=== PATIENT | male | born 1930 | race Caucasian/White ===

== ENCOUNTER 2016-11-02 09:32 | Emergency (ER) | payer MEDICARE, OTHER ==
--- NOTE | 2016-11-02 09:49 | ERPHSYRPT ---
- History of Present Illness Time Seen by Provider: 11/02/16 09:36 Historian: patient Exam Limitations: no limitations Physician History: Pt. sent from cardiac rehab for CP/SOB/exercise intolerance and tachycardia. Pt. with substernal CP intermittently for past 3 days. Pt. given nitros with minimal relief. Pt. with increased SOB and weakness over the weekend. Pt. described pain as tightness, palpitations, pre-syncope and weakness, but no diaphoresis, N/V. Heart rate in 160's. Had CABG X 3 in 2006 then had stents placed due to bypass being plugged. Denies any fever, chills, cough or recent illnesses. Timing/Duration: day(s) (3) Activities at Onset: activity Quality: pressure, tightness Location: substernal Chest Pain Radiation: no radiation Severity of Pain-Max: moderate Severity of Pain-Current: none Modifying Factors: Improves With: exertion (worsens), rest (improves) Associated Symptoms: palpitations, shortness of breath, fatigue, syncope, dizziness, No nausea, No vomiting, No cough Prior Chest Pain/Cardiac Workup: cardiac cath, heart attack (X 2 previously) Nitro Today/Relief: no nitro taken today Aspirin Treatment Today: 81 mg x 1 Allergies/Adverse Reactions: No Known Drug Allergies Allergy (Unverified 11/02/16 09:49) Home Medications: Albuterol Sulfate [Ventolin Hfa] 2 puff DAILY 11/02/16 [History] Amlodipine Besylate 5 mg [Norvasc 5 mg] 5 mg DAILY 11/02/16 [History] Aspirin [[place] Aspirin] 81 mg DAILY 11/02/16 [History] Buspirone HCl 7.5 mg DAILY 11/02/16 [History] Clopidogrel Bisulfate 75 mg [PLAVIX 75 MG Tablet] 75 mg DAILY 11/02/16 [ History] Esomeprazole Magnesium [Nexium] 20 mg DAILY 11/02/16 [History] Fluticasone Propionate [Flonase NASAL] 1 spray DAILY 11/02/16 [History] Hydrochlorothiazide [Microzide] 12.5 mg DAILY 11/02/16 [History] Isosorbide Mononitrate [Isosorbide Mononitrate ER] 30 mg DAILY 11/02/16 [History ] Metformin HCl Xr 500 mg [Glucophage XR 500 MG] 1,000 mg DAILY 11/02/16 [ History] Metoprolol Tartrate [Lopressor] 50 mg DAILY 11/02/16 [History] Simvastatin 40 mg [Zocor 40 mg] 40 mg DAILY 11/02/16 [History] Umeclidinium [place] [Incruse Ellipta] 62.5 mg DAILY 11/02/16 [History] - Review of Systems Constitutional: No Fever, No Chills Eyes: No Symptoms Ears, Nose, & Throat: No Symptoms Respiratory: Dyspnea, Dyspnea on Exertion (RYAN), No Cough, No Stridor, No Wheezing Cardiac: Chest Pain, Palpitations, Orthopnea, No Edema, No Syncope Abdominal/Gastrointestinal: No Abdominal Pain, No Nausea, No Vomiting, No Diarrhea Genitourinary Symptoms: No Dysuria Musculoskeletal: No Back Pain, No Neck Pain Skin: No Rash Neurological: Dizziness, No Focal Weakness, No Sensory Changes Psychological: No Symptoms Endocrine: No Symptoms All Other Systems: Reviewed and Negative - Past Medical History Pertinent Past Medical History: Yes Cardiac History: Coronary Artery Disease, High Cholesterol, Hypertension Respiratory History: COPD Endocrine Medical History: Diabetes Type II Other Medical History: Sleep Apnea - Past Surgical History Cardiac: CABG, Cardiac Stent - Social History Smoking Status: Former smoker Exposure to second hand smoke: No Alcohol Use: None Drug Use: none Patient Lives Alone: No Significant Family History: no pertinent family hx - Nursing Vital Signs Nursing Vital Signs: Initial Vital Signs Temperature 97.4 F Temperature Source Oral Pulse Rate 70 Respiratory Rate 18 Blood Pressure [] 142/67 Pain Intensity 0 - Physical Exam General Appearance: no apparent distress, alert Eye Exam: PERRL/EOMI, eyes nml inspection Ears, Nose, Throat Exam: normal ENT inspection, moist mucous membranes Neck Exam: normal inspection, non-tender, supple, full range of motion Respiratory Exam: normal breath sounds, lungs clear, No respiratory distress Cardiovascular Exam: regular rate/rhythm, normal heart sounds Gastrointestinal/Abdomen Exam: soft, No tenderness, No mass Back Exam: normal inspection, No CVA tenderness, No vertebral tenderness Extremity Exam: normal inspection, normal range of motion Neurologic Exam: alert, oriented x 3, cooperative, normal mood/affect, sensation nml, No motor deficits Skin Exam: normal color, warm, dry - Course Nursing assessment & vital signs reviewed: Yes EKG Interpreted by Me: RATE (75), Sinus Rhythm, NORMAL AXIS, Right Bundle Branch Block, Non-specific ST Changes, Other (compared to old EKG on 12/06, similar changes noted) - Radiology Exams Chest X-ray Interpretation: Teleradiologist Report, Infiltrates (L base) Ordered Tests: Active Orders 24 hr Category Date Time Status Caterer'S Aide STAT Care 11/02/16 09:39 Active EKG-ER Only STAT Care 11/02/16 09:39 Active IV Insertion STAT Care 11/02/16 09:39 Active Pulse Oximetry (ED) STAT Care 11/02/16 09:39 Active CHEST 1 VIEW (PORTABLE) Stat Exams 11/02/16 09:39 Completed BMP Stat Lab 11/02/16 09:49 Completed CBC W DIFF Stat Lab 11/02/16 09:49 Completed CK-Creatinine Phosphokinase Stat Lab 11/02/16 09:49 Completed Manual Differential NC Stat Lab 11/02/16 09:49 Completed TROPONIN Q3H Lab 11/02/16 09:49 Completed TROPONIN Q3H Lab 11/02/16 12:45 Ordered TROPONIN Q3H Lab 11/02/16 15:45 Ordered TROPONIN Q3H Lab 11/02/16 18:45 Ordered TROPONIN Q3H Lab 11/02/16 21:45 Ordered Medication Summary Discontinued Medications Generic Name Dose Route Start Last Admin Trade Name Freq PRN Reason Stop Dose Admin Aspirin 243 mg 11/02/16 10:32 11/02/16 10:35 Ecotrin 81 Mg PO 11/02/16 10:33 Not Given 1XONLY ONE Aspirin 243 mg 11/02/16 10:35 11/02/16 10:36 Baby Aspirin 81 Mg Chew PO 11/02/16 10:36 243 mg STAT ONE Administration Lab/Rad Data: Laboratory Result Diagrams 11/02/16 09:49 11/02/16 09:49 Laboratory Results 11/02/16 11/02/16 11/02/16 Range/Units 09:49 09:49 09:49 WBC 10.7 H (4.0-10.5) K/mm3 RBC 5.13 (4.1-5.6) M/mm3 Hgb 15.6 (12.5-18.0) gm/dl Hct 47.5 (42-50) % MCV 92.6 (78-100) fl MCH 30.4 (26-32) pg MCHC 32.8 (32-36) g/dl RDW 15.4 H (11.5-14.0) % Plt Count 271 (150-450) K/mm3 MPV 12.7 H (6-9.5) fl Segmented Neutrophils 64 (36.-66.) % Band Neutrophils 1 (0.0-2.0) % Lymphocytes (Manual) 29 (24-44) % Monocytes (Manual) 5 (0.0-12.0) % Eosinophils (Manual) 1 (0.00-3.0) % Differential Comment ABNORMAL Toxic Granulation 1+ Platelet Estimate NORMAL (NORMAL) Anisocytosis 1+ Sodium 140 (136-145) mEq/L Potassium 4.6 (3.5-5.1) mEq/L Chloride 105 (98-107) mEq/L Carbon Dioxide 22.7 (21-32) mEq/L Anion Gap 16.4 H (5-15) MEQ/L BUN 16 (9-20) mg/dL Creatinine 1.37 H (0.55-1.30) mg/dl Estimated GFR 53 ML/MIN Glucose 137 H (70-110) MG/DL Calcium 10.5 H (8.5-10.1) mg/dL Creatine Kinase 37 L (39-308) U/L Troponin I < 0.017 (0.000-0.056) ng/ml - Progress Progress: improved Air Movement: good Progress Note: Pt. resting comfortably, NAD, no CP or SOB at this time. Attempting to call manager care, Dr. Dela Cruz, currently in stress test. 11/02/16 12:[address] Dela Cruz for over 1 hr. without response. Called office to talk to grants officer, who gave Dr. Sorensen's pager, manager care reference and instruction librarian. Dr. Sorensen paged at 12:11P. 11/02/16 12:02 11/02/16 12:25 Dr. Sorensen, manager care reference and instruction librarian, notified and agreed to accepting pt. Blood Culture(s) Obtained: No Antibiotics given: No Discussed with DrHarjeet: Other (DR. SORENSEN NOTIFIED AND AGREED TO ACCEPTING PT. FOR FURTHER CARE) Counseled pt/family regarding: lab results, diagnosis, rad results - Departure Time of Disposition: 12:24 Departure Disposition: Transfer ([facility]) Clinical Impression: Chest pain Condition: Stable Critical Care Time: No Referrals: TAO DELA CRUZ [Primary Care Provider] -
[2016-11-02 09:55] LABS: Mean Cell Volume 92.6 fl (78-100); Mean Corpuscular Hemoglobin 30.4 pg (26-32); Mean Platelet Volume 12.7 fl (6-9.5); Platelet Count 271 K/mm3 (150-450); Red Blood Count 5.13 M/mm3 (4.1-5.6); Red Cell Distribution Width 15.4 % (11.5-14.0); White Blood Count 10.7 K/mm3 (4.0-10.5)
[2016-11-02 10:29] LABS: ANION GAP 16.4 MEQ/L (5-15); Carbon Dioxide 22.7 mEq/L (21-32); Potassium 4.6 mEq/L (3.5-5.1)
[2016-11-02] MEDS ORDERED: ECOTRIN 81 MG PO ONE (10:32)
[2016-11-02] MEDS ORDERED: BABY ASPIRIN 81 MG CHEW PO ONE (10:35)
--- NOTE | 2016-11-02 10:37 | XRAY ---
Indication: Chest pain. Comparison: None Portable chest demonstrates mild left base infiltrate versus atelectasis and a few bilateral scattered calcified granulomas. No consolidation or large effusion. Heart is not enlarged for AP portable technique with previous CABG surgery. Bony thorax intact with mild osteopenia and degenerative changes. Impression: Left base infiltrate/atelectasis. Correlate clinically.
[2016-11-02 10:44] LABS: ANISOCYTOSIS 1+; BAND 1 % (0.0-2.0); Eosinophil 1 % (0.00-3.0); Platelet Estimate NORMAL (NORMAL); Total Cells Counted 100; Toxic Granulation 1+
[2016-11-02 13:26] VITALS: BP 152/90; PULSE 73; O2SAT 97
== END 2016-11-02 13:50 | disposition short-term general hospital (02) ==
LOC: ED 09:32
DX: R07.89 Other chest pain (principal); R00.0 Tachycardia, unspecified; R06.02 Shortness of breath; R00.2 Palpitations; R42 Dizziness and giddiness; Z79.899 Other long term (current) drug therapy; I25.10 Atherosclerotic heart disease of native coronary artery without angina pectoris; E78.00 Pure hypercholesterolemia, unspecified; I10 Essential (primary) hypertension; J44.9 Chronic obstructive pulmonary disease, unspecified; E11.9 Type 2 diabetes mellitus without complications; Z98.61 Coronary angioplasty status; Z95.1 Presence of aortocoronary bypass graft
CPT/HCPCS: 36000; 36415; 71010; 80048; 82550; 84484; 85025; 93005; 93041; 99285; A9270-GY

== ENCOUNTER 2016-11-09 09:24 | Emergency (ER) | payer MEDICARE, OTHER ==
[2016-11-09] MEDS ORDERED: Sodium Chloride 0.9% 1000 ML 1,000 ML ONE (10:11)
[2016-11-09] MEDS ORDERED: Sodium Chloride 0.9% 1000 ML 1,000 ML IV SCH (10:15)
--- NOTE | 2016-11-09 10:16 | ERPHSYRPT ---
- History of Present Illness Time Seen by Provider: 11/09/16 10:00 Source: patient Exam Limitations: clinical condition Patient Subjective Stated Complaint: shortness of breath, dizzyness rapid heart rate Triage Nursing Assessment: patient was in cardiac rehab on stationary bike became dizzy and short of breeath when he got up off the bike, heart rate was tachycardic, brought him down to ED states his chest was tight. lung sounds clear diminished, pulses equal bilateral radius Physician History: PATIENT WITH A HISTORY OF EXTENSIVE CORONARY ARTERY DISEASE, MYOCARDIAL INFARCTION X 2, CARDIAC STENTS X 6 AND PREVIOUS CORONARY ARTERY BYPASS X 3 VESSELS IN 2006, DEVELOPED DYSPNEA WITH CHEST PRESSURE DISCOMFORT ASSOCIATED WITH DIZZINESS AT THE END OF EXERCISION IN CARDIAC REHAB. PATIENT STATES HIS PRESSURE DISCOMFORT PAIN SCALE 6/10, RESOLVED AFTER 10 MINUTES. PATIENT DENIES DIAPHORESIS. PATIENT HAD AN EPISODE OF CHEST PAIN WITH DYSPNEA 1 WEEK DURING CARDIAC REHAB AND WAS TREANSFERRED TO HIS GANG [facility] IN [facility] FOR A STRESS TEST. Timing/Duration: today Activities at Onset: activity Quality: pressure Location: substernal Chest Pain Radiation: no radiation Severity of Pain-Max: moderate Severity of Pain-Current: none Modifying Factors: Improves With: exertion Nitro Today/Relief: 0.4 mg x 1 Aspirin Treatment Today: 81 mg x 1 Associated Symptoms: shortness of breath, chest pain, other (DIZZINESS) Prior Chest Pain/Cardiac Workup: stress test (EVALUATION WITH STRESS TEST 1 WEEK AGO), recently seen/treated Allergies/Adverse Reactions: No Known Drug Allergies Allergy (Verified 11/09/16 10:12) Home Medications: Albuterol Sulfate [Ventolin Hfa] 2 puff DAILY 11/02/16 [History] Amlodipine Besylate 5 mg [Norvasc 5 mg] 5 mg DAILY 11/02/16 [History] Aspirin [[place] Aspirin] 81 mg DAILY 11/02/16 [History] Buspirone HCl 10 mg BID 11/02/16 [History] Esomeprazole Magnesium [Nexium] 20 mg DAILY 11/02/16 [History] Hydrochlorothiazide [Microzide] 12.5 mg DAILY 11/02/16 [History] Isosorbide Mononitrate [Isosorbide Mononitrate ER] 30 mg DAILY 11/02/16 [History ] Metformin HCl Xr 500 mg [Glucophage XR 500 MG] 1,000 mg DAILY 11/02/16 [ History] Simvastatin 40 mg [Zocor 40 mg] 40 mg DAILY 11/02/16 [History] Umeclidinium [place] [Incruse Ellipta] 62.5 mg DAILY 11/02/16 [History] Amiodarone HCl 200 mg PO DAILY 11/09/16 [History] Metoprolol Succinate 25 mg PO DAILY 11/09/16 [History] Rivaroxaban [Xarelto] 15 mg PO HS 11/09/16 [History] Hx Tetanus, Diphtheria Vaccination/Date Given: Yes Hx Influenza Vaccination/Date Given: Yes Hx Pneumococcal Vaccination/Date Given: Yes Immunizations Up to Date: Yes - Review of Systems Constitutional: No Fever, No Chills Eyes: No Symptoms Ears, Nose, & Throat: No Symptoms Respiratory: Dyspnea, Dyspnea on Exertion (RYAN) Cardiac: No Chest Pain, No Edema, No Syncope Abdominal/Gastrointestinal: No Symptoms, No Abdominal Pain, No Nausea, No Vomiting, No Diarrhea Genitourinary Symptoms: No Symptoms, No Dysuria Musculoskeletal: No Symptoms, No Back Pain, No Neck Pain Skin: No Rash Neurological: Dizziness, No Focal Weakness, No Sensory Changes Psychological: No Symptoms Endocrine: No Symptoms All Other Systems: Reviewed and Negative - Past Medical History Pertinent Past Medical History: Yes Cardiac History: Coronary Artery Disease, High Cholesterol, Hypertension Respiratory History: COPD Endocrine Medical History: Diabetes Type II Other Medical History: Sleep Apnea - Past Surgical History Past Surgical History: Yes Cardiac: CABG, Cardiac Stent - Social History Smoking Status: Former smoker Exposure to second hand smoke: No Alcohol Use: None Drug Use: none Patient Lives Alone: No Significant Family History: no pertinent family hx - Nursing Vital Signs Nursing Vital Signs: Initial Vital Signs Temperature 97.8 F Temperature Source Oral Pulse Rate 66 Respiratory Rate 18 Blood Pressure [Right Arm] 130/70 Pain Intensity 0 - Physical Exam General Appearance: no apparent distress, alert Eye Exam: PERRL/EOMI, eyes nml inspection Ears, Nose, Throat Exam: normal ENT inspection, moist mucous membranes Neck Exam: normal inspection, non-tender, supple Respiratory Exam: normal breath sounds, lungs clear, No respiratory distress Cardiovascular Exam: regular rate/rhythm, normal heart sounds, normal peripheral pulses, No edema Gastrointestinal/Abdomen Exam: soft, No tenderness, No mass Back Exam: normal inspection, No CVA tenderness, No vertebral tenderness Extremity Exam: normal inspection, normal range of motion Neurologic Exam: alert, oriented x 3, cooperative, normal mood/affect, nml cerebellar function, sensation nml, No motor deficits Skin Exam: normal color, warm, dry Lymphatic Exam: No adenopathy SpO2 Interpretation: normal SpO2: 97 Oxygen Delivery: Room Air - Course EKG Interpreted by Me: RATE, Sinus Rhythm, NORMAL AXIS, Right Bundle Branch Block (RATE OF 75) - Radiology Exams Chest X-ray Interpretation: Interpreted by me, Negative (PREVIOUS STERNOTOMY) Ordered Tests: Active Orders 24 hr Category Date Time Status ACCUCHECK [Accucheck] STAT Care 11/09/16 09:45 Active Coil Winder Strap STAT Care 11/09/16 10:02 Active Clean Catch Urine Specimen STAT Care 11/09/16 10:48 Active EKG-ER Only STAT Care 11/09/16 10:02 Active IV Insertion STAT Care 11/09/16 10:02 Active Orthostatic Vital Signs STAT Care 11/09/16 09:40 Active Oxygen-ED Only NASAL CANNULA 2 lpm Care 11/09/16 10:02 Active CHEST 1 VIEW (PORTABLE) Stat Exams 11/09/16 10:03 Completed CBC W DIFF Stat Lab 11/09/16 10:10 Completed CMP Stat Lab 11/09/16 10:10 Completed MAGNESIUM Stat Lab 11/09/16 10:10 Completed NT PRO BNP Stat Lab 11/09/16 10:10 Completed PROTIME WITH INR Stat Lab 11/09/16 10:10 Completed TROPONIN Q3H Lab 11/09/16 10:10 Completed TROPONIN Q3H Lab 11/09/16 13:15 Ordered TROPONIN Q3H Lab 11/09/16 16:15 Ordered TROPONIN Q3H Lab 11/09/16 19:15 Ordered TROPONIN Q3H Lab 11/09/16 22:15 Ordered UA Stat Lab 11/09/16 11:08 Completed Medication Summary Generic Name Dose Route Start Last Admin Trade Name Freq PRN Reason Stop Dose Admin Sodium Chloride 1,000 mls @ 50 mls/hr 11/09/16 10:15 11/09/16 10:23 Sodium Chloride 0.9% 1000 Ml IV 12/09/16 10:14 50 mls/hr .Q20H JONNA Administration Lab/Rad Data: Laboratory Result Diagrams 11/09/16 10:10 11/09/16 10:10 Laboratory Results 11/09/16 11/09/16 11/09/16 Range/Units 11:08 10:10 10:10 WBC (4.0-10.5) K/mm3 RBC (4.1-5.6) M/mm3 Hgb (12.5-18.0) gm/dl Hct (42-50) % MCV (78-100) fl MCH (26-32) pg MCHC (32-36) g/dl RDW (11.5-14.0) % Plt Count (150-450) K/mm3 MPV (6-9.5) fl Gran % (36.0-66.0) % Lymphocytes % (24.0-44.0) % Monocytes % (0.0-12.0) % Eosinophils % (0.00-5.0) % Basophils % (0.0-0.4) % Basophils # (0-0.4) INR (0.8-3.0) Sodium (136-145) mEq/L Potassium (3.5-5.1) mEq/L Chloride (98-107) mEq/L Carbon Dioxide (21-32) mEq/L Anion Gap (5-15) MEQ/L BUN (9-20) mg/dL Creatinine (0.55-1.30) mg/dl Estimated GFR ML/MIN Glucose (70-110) MG/DL Calcium (8.5-10.1) mg/dL Magnesium 1.8 (1.8-2.4) mg/dL Total Bilirubin (0.2-1.0) mg/dL AST (15-37) U/L ALT (12-78) U/L Alkaline Phosphatase (46-116) U/L Troponin I < 0.017 (0.000-0.056) ng/ml NT-Pro-B Natriuret Pep (0-450) pg/ml Serum Total Protein (6.4-8.2) gm/dL Albumin (3.4-5.0) g/dL Ur Collection Type VOID Urine Color YELLOW (YELLOW) Urine Appearance CLEAR (CLEAR) Urine pH 5.0 (5-6) Ur Specific [place] 1.015 (1.005-1.025) Urine Protein NEGATIVE (Negative) Urine Ketones NEGATIVE (NEGATIVE) Urine Blood NEGATIVE (0-5) Henry/ul Urine Nitrite NEGATIVE (NEGATIVE) Urine Bilirubin NEGATIVE (NEGATIVE) Urine Urobilinogen NORMAL (0-1) mg/dL Ur Leukocyte Esterase NEGATIVE (NEGATIVE) Urine Glucose NEGATIVE (NEGATIVE) mg/dL Specimen Received 11/09/2016 1100 11/09/16 11/09/16 11/09/16 Range/Units 10:10 10:10 10:10 WBC 9.2 (4.0-10.5) K/mm3 RBC 4.95 (4.1-5.6) M/mm3 Hgb 15.4 (12.5-18.0) gm/dl Hct 46.1 (42-50) % MCV 93.1 (78-100) fl MCH 31.1 (26-32) pg MCHC 33.4 (32-36) g/dl RDW 15.2 H (11.5-14.0) % Plt Count 249 (150-450) K/mm3 MPV 13.0 H (6-9.5) fl Gran % 71.3 H (36.0-66.0) % Lymphocytes % 17.2 L (24.0-44.0) % Monocytes % 8.6 (0.0-12.0) % Eosinophils % 2.4 (0.00-5.0) % Basophils % 0.5 (0.0-0.4) % Basophils # 0.05 (0-0.4) INR 1.51 (0.8-3.0) Sodium 137 (136-145) mEq/L Potassium 4.9 (3.5-5.1) mEq/L Chloride 104 (98-107) mEq/L Carbon Dioxide 23.9 (21-32) mEq/L Anion Gap 14.4 (5-15) MEQ/L BUN 14 (9-20) mg/dL Creatinine 1.38 H (0.55-1.30) mg/dl Estimated GFR 52 ML/MIN Glucose 184 H (70-110) MG/DL Calcium 10.5 H (8.5-10.1) mg/dL Magnesium (1.8-2.4) mg/dL Total Bilirubin 0.50 (0.2-1.0) mg/dL AST 10 L (15-37) U/L ALT 28 (12-78) U/L Alkaline Phosphatase 80 (46-116) U/L Troponin I (0.000-0.056) ng/ml NT-Pro-B Natriuret Pep 108 (0-450) pg/ml Serum Total Protein 6.9 (6.4-8.2) gm/dL Albumin 3.9 (3.4-5.0) g/dL Ur Collection Type Urine Color (YELLOW) Urine Appearance (CLEAR) Urine pH (5-6) Ur Specific [place] (1.005-1.025) Urine Protein (Negative) Urine Ketones (NEGATIVE) Urine Blood (0-5) Henry/ul Urine Nitrite (NEGATIVE) Urine Bilirubin (NEGATIVE) Urine Urobilinogen (0-1) mg/dL Ur Leukocyte Esterase (NEGATIVE) Urine Glucose (NEGATIVE) mg/dL Specimen Received - Progress Progress Note: 11/09/16 12:03 PATIENT HAD NO EPISODES OF CHEST PAIN, DYSPNEA, OR DIAPHORESIS WHILE IN THE EMERGENCY ROOM. DISCUSSED WITH PATIENT'S GANG SAWYER DR DELA CRUZ AT 1200 WILL INCREASE DOSE OF METOPROLOL 25MG TO BID, AND WILL CALL PATIENT LATER TODAY TO SCHEDULE FOLLOWUP APPOINTMENT . Counseled pt/family regarding: lab results, diagnosis, need for follow-up, rad results - Departure Time of Disposition: 12:18 Departure Disposition: Home Clinical Impression: CHEST PAIN, Chest pain Condition: Stable Critical Care Time: No Referrals: TAO DELA CRUZ [Primary Care Provider] - Additional Instructions: INCREASE DOSE OF METOPROLOL TO 25MG TWICE DAILY. DR DELA CRUZ WITH CALL YOUR TODAY TO SCHEDULE A FOLLOWUP APPOINTMENT.
[2016-11-09 10:26] LABS: BASOPHIL % 0.5 % (0.0-0.4); Eosinophil % 2.4 % (0.00-5.0); Granulocytes % 71.3 % (36.0-66.0); Lymphocytes % 17.2 % (24.0-44.0); Mean Cell Volume 93.1 fl (78-100); Mean Corpuscular Hemoglobin 31.1 pg (26-32); Monocytes % 8.6 % (0.0-12.0); Platelet Count 249 K/mm3 (150-450); Red Blood Count 4.95 M/mm3 (4.1-5.6); Red Cell Distribution Width 15.2 % (11.5-14.0); White Blood Count 9.2 K/mm3 (4.0-10.5)
[2016-11-09 10:31] LABS: INR 1.51 (0.8-3.0); PROTIME 17.1 SECONDS (8.83-12.87)
--- NOTE | 2016-11-09 10:33 | XRAY ---
Indication: Chest pain and dyspnea. Comparison: November 02, 2016. Portable chest unchanged again demonstrating minimal left base infiltrate/atelectasis and scattered calcified granulomas. Remaining lungs clear. Heart is not enlarged again demonstrating CABG surgery. No new/acute findings.
[2016-11-09 10:47] LABS: ALBUMIN 3.9 g/dL (3.4-5.0); ANION GAP 14.4 MEQ/L (5-15); BILIRUBIN,TOTAL 0.5 mg/dL (0.2-1.0); Carbon Dioxide 23.9 mEq/L (21-32); Potassium 4.9 mEq/L (3.5-5.1); Total Protein 6.9 gm/dL (6.4-8.2)
[2016-11-09 11:27] LABS: Bilirubin NEGATIVE (NEGATIVE); Blood NEGATIVE Ery/ul (0-5); COMPLETE URINE MICROSCOPIC? NO; Collection Type VOID; Glucose NEGATIVE (NEGATIVE); Leukocyte Esterase NEGATIVE (NEGATIVE)
[2016-11-09 12:31] VITALS: BP 130/75; PULSE 78; O2SAT 96
== END 2016-11-09 12:31 | disposition home or self-care (01) ==
LOC: ED 09:24
DX: R07.89 Other chest pain (principal); R06.02 Shortness of breath; R42 Dizziness and giddiness
CPT/HCPCS: 36000; 36415; 71010; 80053; 81002; 82962; 83735; 83880; 84484; 85025; 85610; 93005; 93041; 96360; 99284